=== PATIENT | male | born 1980 | race Two or more races ===

== ENCOUNTER → 2018-03-26 | Outpatient (CLI) | payer OTHER ==
[~2018-03-26] MED LIST: FLUT9.9S NS; GADOBUTROL 10 MMOL/10 ML VIAL IV ONE; LORA10TA68 PO
--- NOTE | 2018-03-26 16:44 | KCIC ---
MR of the right hip and MR proximal right thigh Indication: Right hip and thigh pain. Impingement. Technique: Standard multiplanar sequences are obtained. As requested, images are obtained before and after intravenous contrast. Imaging through the right hip demonstrates a small tear of the anterosuperior labrum. No significant joint effusion. No advanced primary osteoarthritis. No bone lesion, acute fracture or femoral head osteonecrosis. Gluteus minimus and gluteus medius tendon attachments are intact. Hamstring tendon attachment intact. Iliopsoas tendon attachment intact. Rectus femoris tendon attachment intact. Coronal STIR survey sequence inclusive of the contralateral hip demonstrates no additional acute findings. Images through the proximal right thigh include about the proximal 22 cm of the femur, which as per the technologist covers the area of pain. Muscle tissue intact. No bone lesion, acute fracture, or bone destruction. Muscle tissue intact. No abnormal soft tissue fluid collection. IMPRESSION: 1. Tear of the anterosuperior right labrum. 2. No other acute findings at the right hip or at the proximal right thigh. Electronically signed by: Manuel Roy MD (03/26/2018 4:41 PM) [id number]
== END | disposition home or self-care (01) ==
LOC: KCIC MRI 14:28
PROVIDERS: ATTEND Family Medicine
DX: S73.101A Unspecified sprain of right hip, initial encounter (principal); X58.XXXA Exposure to other specified factors, initial encounter; Y93.89 Activity, other specified; Y92.89 Other specified places as the place of occurrence of the external cause; Y99.8 Other external cause status
CPT/HCPCS: 73720; 73723; A9585